=== PATIENT | female | born 1985 | race African-American/Black ===

== ENCOUNTER 2021-01-22 13:08 | Outpatient (CLI) | payer MEDICAID | END 2021-01-22 13:09 | disposition home or self-care (01) | LOC: CSHULT 13:08 | PROVIDERS: ATTEND Nurse Practitioner Adult Health | DX: D25.9 Leiomyoma of uterus, unspecified (principal) | CPT/HCPCS: 76856 ==

== ENCOUNTER 2021-03-04 00:51 | Emergency (ER) | payer MEDICAID, OTHER ==
[2021-03-04 01:37] LABS: #Basophils 0.1 10x3/uL (0.0-0.2); #Eosinphils 0.2 10x3/uL (0.0-0.5); #Monocytes 0.5 10x3/uL (0.0-1.1); #Neutrophils 4.6 10x3/uL (1.5-8.4); %Basophils 0.7 % (0.0-2.0); %Eosinophils 2.2 % (0.0-6.0); %Lymphocytes 46.8 % (18.0-47.0); %Monocytes 5.2 % (0.0-10.0); %Neutrophils 44.9 % (40.0-75.0); Hemoglobin 12.1 g/dL (12.0-15.5); Mean Corpuscular HGB CONC 33.7 g/dL (32.0-36.0); Mean Corpuscular Hemoglobin 28.8 pg (27.0-33.0); Mean Corpuscular Volume 85.5 fl (81.6-98.3); Mean Platelet Volume 10.3 fl (7.4-10.4); Platelet Count 320 10x3/uL (150-450); RBC Distribution Width 13.5 % (11.5-14.5); White Blood Cell (WBC) Count 10.3 10x3/uL (3.5-10.5)
[2021-03-04 01:50] LABS: ALT (SGPT) 31 U/L (8-55); AST (SGOT) 22 U/L (5-34); Albumin 4.1 g/dL (3.5-5.0); Alkaline Phosphatase 68 U/L (40-110); Anion Gap 14 mmol/L (10-20); BUN (Urea Nitrogen) 8 mg/dL (7.0-18.7); Bilirubin, Total 0.3 mg/dL (0.2-1.2); Calc. Creatinine Clearance 0 mL/min (70-130); Calcium 9.4 mg/dL (7.8-10.44); Carbon Dioxide 24 mmol/L (22-29); Chloride 105 mmol/L (98-107); Glucose 120 mg/dL (70-105); Potassium 3.9 mmol/L (3.5-5.1); Protein, Total 7.1 g/dL (6.0-8.3); Sodium 139 mmol/L (136-145)
== END 2021-03-04 02:52 | disposition home or self-care (01) ==
LOC: CSHERS 00:51
DX: R07.89 Other chest pain (principal); F17.200 Nicotine dependence, unspecified, uncomplicated; R20.0 Anesthesia of skin
CPT/HCPCS: 71045; 80053; 85025; 93005

== ENCOUNTER 2021-06-13 17:46 | Emergency (ER) | payer OTHER | END 2021-06-13 19:02 | disposition home or self-care (01) | LOC: CSHERS 17:46 | DX: M54.6 Pain in thoracic spine (principal); F17.210 Nicotine dependence, cigarettes, uncomplicated; X50.0XXA Overexertion from strenuous movement or load, initial encounter; Y93.B9 Activity, other involving muscle strengthening exercises; Y92.39 Other specified sports and athletic area as the place of occurrence of the external cause | CPT/HCPCS: 99283 ==

== ENCOUNTER 2021-11-01 01:08 | Emergency (ER) | payer BC, MEDICAID, OTHER ==
[2021-11-01] MEDS ORDERED: Ketorolac Tromethamine 30 MG/ML VIAL ONE (01:39)
[2021-11-01 03:02] LABS: SARS-CoV-2 NAA Rapid Test Not Detected (NotDetected)
== END 2021-11-01 02:15 | disposition home or self-care (01) ==
LOC: CSHERS 01:08
DX: J06.9 Acute upper respiratory infection, unspecified (principal); F17.210 Nicotine dependence, cigarettes, uncomplicated; Z20.822 Contact with and (suspected) exposure to COVID-19
CPT/HCPCS: 94640; 94760; 96372; J1885; J7620

== ENCOUNTER 2022-04-22 20:32 | Emergency (ER) | payer OTHER ==
[2022-04-22] MEDS ORDERED: Metoclopramide HCl 10 MG/2 ML VIAL ONE (21:39)
[2022-04-22] MEDS ORDERED: diphenhydrAMINE 50 MG/ML VIAL ONE (21:39)
[2022-04-22] MEDS ORDERED: Ketorolac Tromethamine 30 MG/ML VIAL ONE (21:40)
[2022-04-22] MEDS ORDERED: Ondansetron PF 4 MG/2 ML Vial ONE (21:40)
[2022-04-22] MEDS ORDERED: Morphine 4 MG/ML VIAL ONE (23:13)
== END 2022-04-23 01:21 | disposition home or self-care (01) ==
LOC: CSHERS 20:32
DX: H57.12 Ocular pain, left eye (principal); G43.909 Migraine, unspecified, not intractable, without status migrainosus; F17.210 Nicotine dependence, cigarettes, uncomplicated
CPT/HCPCS: 96374; 96375; J1200; J1885; J2270; J2405; J2765

== ENCOUNTER 2022-08-10 00:32 | Emergency (ER) | payer MEDICAID, OTHER, SELFPAY ==
[2022-08-10] MEDS ORDERED: Dexamethasone 10 MG/ML VIAL ONE (01:24)
== END 2022-08-10 01:35 | disposition home or self-care (01) ==
LOC: CSHERS 00:32
DX: L25.9 Unspecified contact dermatitis, unspecified cause (principal); F17.210 Nicotine dependence, cigarettes, uncomplicated
CPT/HCPCS: 99282; J1100

== ENCOUNTER 2022-08-24 20:44 | Emergency (ER) | payer SELFPAY ==
[2022-08-24 21:24] LABS: Bilirubin Neg (Negative); Blood, Urine 150 (Negative); Clarity Clear (Clear); Glucose, Urine (Dipstick) Normal (Negative); Ketone, Urine Negative (Negative); Leukocyte 100 (Negative); Nitrite Negative (Negative); Protein, Urine (Dipstick) Negative (Neg-Trace); Urobilinogen Normal mg/dL (Less than 2)
[2022-08-24 21:27] LABS: Pregnancy Test - Urine (BHCG) Negative (Negative); Pregu Control Background? CLEAR/WHITE (CLR/WHITE); Pregu Control Bar Appear? YES (CONTROL BAR)
[2022-08-24 21:37] LABS: CAUTI Indications for Culture Pelvic or flank pain; Transitional Epithelial 0-3 HPF (None Seen)
[2022-08-24 21:38] LABS: Bacteria/HPF 2+ HPF (None Seen)
[2022-08-24 21:39] LABS: Urine Culture Reflex Yes Yes
[2022-08-24] MEDS ORDERED: Lidocaine 1% PF 5 ML VIAL ONE (22:25)
[2022-08-24] MEDS ORDERED: cefTRIAXone (ROCEPHIN) 1 GM VIAL ONE (22:25)
== END 2022-08-24 22:47 | disposition home or self-care (01) ==
LOC: CSHERS 20:44
DX: N30.00 Acute cystitis without hematuria (principal); F17.210 Nicotine dependence, cigarettes, uncomplicated
CPT/HCPCS: 81001; 81025; 87077; 87086; 96372; 99284; J0696

== ENCOUNTER 2022-09-29 02:52 | Emergency (ER) | payer SELFPAY | END 2022-09-29 04:32 | disposition home or self-care (01) | LOC: CSHERS 02:52 | DX: N94.819 Vulvodynia, unspecified (principal); F17.210 Nicotine dependence, cigarettes, uncomplicated | CPT/HCPCS: 99284 ==